=== PATIENT | male | born 1990 | race African-American/Black ===

== ENCOUNTER 2020-08-21 22:31 | Emergency (ER) | payer SELFPAY ==
[~2020-08-21] VITALS: Ht 172.7 cm; Wt 98.0 kg
[2020-08-21 22:35] VITALS: BP 150/101
--- NOTE | 2020-08-21 23:03 | RAD ---
Exam: Chest 2 views INDICATION: Cough TECHNIQUE: Frontal and lateral views the chest Comparisons: None FINDINGS: The cardiomediastinal silhouette and pulmonary vessels are within normal limits. The lung and pleural spaces are clear. IMPRESSION: No acute cardiopulmonary process. Electronically signed by: Karyna Heller MD (08/21/2020 11:00 PM) SUSH[facility]
[2020-08-21] MEDS ORDERED: PRED-220 PO (23:14)
[2020-08-21] MEDS ORDERED: ALBU2.5V8 IH (23:14)
--- NOTE | 2020-08-21 23:14 | PHYS DOC ---
Past History Past Medical History: No Pertinent History Past Surgical History: No Surgical History Smoking: Cigarettes Alcohol Use: Occasionally Drug Use: Marijuana General Adult EDM: Chief Complaint: COUGH HPI: HPI: 29-year-old male presents with coughing and sweats. The patient was tested a few days ago for COVID-19 and it was negative. He is still having a lot of coughing and sweats. He does not believe he has a fever. He went and got tested a second time today because his place of employment wanted him to. He comes in tonight because he feels like he is wheezing and the cough is making it difficult to sleep. Patient has a distant history of asthma. He is not a smoker. He quit 2 months ago. He has no other complaints at this time. Review of Systems: Review of Systems: Constitutional: Sweats Eyes: Denies change in visual acuity HENT: Nasal congestion Respiratory: Cough with shortness of breath Cardiovascular: Denies chest pain or edema GI: Denies abdominal pain, nausea, vomiting, bloody stools or diarrhea : Denies dysuria Musculoskeletal: Denies back pain or joint pain Integument: Denies rash Neurologic: Denies headache, focal weakness or sensory changes Endocrine: Denies polyuria or polydipsia Lymphatic: Denies swollen glands Psychiatric: Denies depression or anxiety Current Medications: Current Meds: Current Medications Medications (Trade) Dose Ordered Sig/Winter Start Time Stop Time Status Last Admin Dose Admin Albuterol Sulfate (Ventolin Hfa Inhaler) 1 puff 1X ONCE 08/21/20 23:15 08/21/20 23:16 UNV Prednisone (Prednisone) 60 mg 1X ONCE 08/21/20 23:15 08/21/20 23:16 UNV Allergies: Allergies: Allergies Coded Allergies Type Severity Reaction Last Updated Verified No Known Drug Allergies 12/05/13 No Physical Exam: PE: Constitutional: Well developed, well nourished, obese, no acute distress, non- toxic appearance. [] HENT: Normocephalic, atraumatic, bilateral external ears normal, oropharynx moist, no oral exudates, nose normal. [] Eyes: PERRLA, EOMI, conjunctiva normal, no discharge. [] Neck: Normal range of motion, no tenderness, supple, no stridor. [] Cardiovascular: Heart rate regular rhythm, no murmur [] Lungs & Thorax: Bilateral diffuse expiratory wheezing [] Abdomen: Bowel sounds normal, soft, no tenderness, no masses, no pulsatile masses. [] Skin: Warm, dry, no erythema, no rash. [] Back: No tenderness, no CVA tenderness. [] Extremities: No tenderness, no cyanosis, no clubbing, ROM intact, no edema. [] Neurologic: Alert and oriented X 3, normal motor function, normal sensory function, no focal deficits noted. [] Psychologic: Affect normal, judgement normal, mood normal. [] Current Patient Data: Vital Signs: Vital Signs Date Time Temp Pulse Resp B/P (MAP) Pulse Ox O2 Delivery O2 Flow Rate FiO2 08/21/20 22:35 98.2 87 18 150/101 (117) 97 Room Air EKG: EKG: [] Radiology/Procedures: Radiology/Procedures: [] Heart Score: Risk Factors: Risk Factors: DM, Current or recent (<one month) smoker, HTN, HLP, family history of CAD, obesity. Risk Scores: Score 0 - 3: 2.5% MACE over next 6 weeks - Discharge Home Score 4 - 6: 20.3% MACE over next 6 weeks - Admit for Clinical Observation Score 7 - 10: 72.7% MACE over next 6 weeks - Early Invasive Strategies Course & Med Decision Making: Course & Med Decision Making Pertinent Labs and Imaging studies reviewed. (See chart for details) The patient appears to be having an asthma exacerbation. I will treat him in the emergency room with an albuterol inhaler with spacer. I will also discharge him with this and a prescription for an additional 1 week. We will give him 60 mg of prednisone in the ED and 3 more days prescription for home. The patient's breathing has improved. He is stable for discharge at this time. [] Dragon Disclaimer: Dragon Disclaimer: This electronic medical record was generated, in whole or in part, using a voice recognition dictation system. Departure Departure: Impression: Primary Impression: Asthma exacerbation Qualified Codes: J45.21 - Mild intermittent asthma with (acute) exacerbation Disposition: 01 DC HOME SELF CARE/HOMELESS Condition: STABLE Referrals: PCP,NO (PCP) Patient Instructions: Asthma, Adult, [id number] Scripts Prednisone (PREDNISONE) 10 Mg Tablet 50 MG PO DAILY for asthma for 3 Days, #15 TAB Prov: FELIX AVILEZ DO 08/21/20 Albuterol Sulfate (VENTOLIN HFA INHALER) 18 Gm Hfa.aer.ad 2 PUFF IH PRN Q4HRS PRN for FOR ASTHMA, #1 INHALER 0 Refills Prov: FELIX AVILEZ DO 08/21/20 FELIX AVILEZ DO Aug 21, 2020 23:14
[2020-08-21] MEDS ORDERED: ALBUTEROL SULFATE 8GM INHALER. INH ONE (23:30)
[2020-08-21] MEDS ORDERED: predniSONE 20 MG TABLET PO ONE (23:30)
== END 2020-08-22 00:05 | disposition home or self-care (01) ==
LOC: ER 22:31
DX: J45.21 Mild intermittent asthma with (acute) exacerbation (principal); R05 Cough; L75.0 Bromhidrosis; F17.210 Nicotine dependence, cigarettes, uncomplicated; F12.90 Cannabis use, unspecified, uncomplicated
CPT/HCPCS: 71046; 94640; 99283; J7512; J7613